=== PATIENT | male | born 1990 | race Caucasian/White ===

== ENCOUNTER 2018-04-26 01:45 | Emergency (ER) | payer OTHER, MEDICAID ==
[2018-04-26] MEDS: ONDANSETRON 4 MG INJ IM (02:16)
== END 2018-04-26 03:14 | disposition home or self-care (01) ==
LOC: E/R 01:45
DX: F10.920 Alcohol use, unspecified with intoxication, uncomplicated (principal)
CPT/HCPCS: 96372; 99284-25